=== PATIENT | female | born 1980 ===

== ENCOUNTER 2021-11-10 06:08 | Day surgery (SDC) | payer OTHER ==
[~2021-11-10 06:08] MED LIST: CLARITIN5 MG PO; SYNTHROID50 MCG PO
[2021-11-10] MEDS ORDERED: PERCOCET 5-3251 EACH PO (12:32)
== END 2021-11-10 16:55 | disposition home or self-care (01) ==
LOC: CIR.AMB 06:08
PROVIDERS: ATTEND Surgery
DX: D35.1 Benign neoplasm of parathyroid gland (principal)

== ENCOUNTER 2021-12-04 10:57 | Emergency (ER) | payer OTHER ==
[~2021-12-04] VITALS: Ht 157.5 cm; Wt 57.2 kg
[~2021-12-04 10:57] MED LIST changes: +PERCOCET 5-3251 EACH PO
[2021-12-04] MEDS ORDERED: CIPRO500 MG PO (12:52)
== END 2021-12-04 14:08 | disposition home or self-care (01) ==
LOC: ER 10:57
DX: T81.49XA Infection following a procedure, other surgical site, initial encounter (principal); Y83.8 Other surgical procedures as the cause of abnormal reaction of the patient, or of later complication, without mention of misadventure at the time of the procedure; Y92.9 Unspecified place or not applicable; Z91.048 Other nonmedicinal substance allergy status

== ENCOUNTER 2021-12-27 11:49 | Emergency (ER) | payer OTHER ==
[~2021-12-27] VITALS: Ht 157.5 cm; Wt 57.2 kg
[~2021-12-27 11:49] MED LIST changes: +CIPRO500 MG PO
== END 2021-12-27 15:49 | disposition home or self-care (01) ==
LOC: ER 11:49
DX: T81.41XA Infection following a procedure, superficial incisional surgical site, initial encounter (principal)